=== PATIENT | female | born 1965 | race Caucasian/White ===

== ENCOUNTER 2016-10-12 22:03 | Emergency (ER) | payer BC ==
[~2016-10-12] VITALS: Ht 157.5 cm; Wt 77.6 kg
[2016-10-12 22:12] VITALS: TEMP 36.6; Ht 157.5 cm; Wt 77.6 kg
[2016-10-12] MEDS ORDERED: SODIUM CHLORIDE 0.9% 1000ML 1,000 ML IV STA (22:23)
[2016-10-12] MEDS ORDERED: DiphenhydrAMINE HCL 50 MG/ML VIAL IV STA (22:23)
[2016-10-12] MEDS ORDERED: PROMETHAZINE HCL INJ 25 MG/ML 1 ML VIAL IV STA (22:23)
[2016-10-12] MEDS ORDERED: DEXAMETHASONE SOD INJ 10 MG/ML VIAL IV ONE (22:30)
[2016-10-12] MEDS ORDERED: PROMETHAZINE HCL INJ 25 MG in SODIUM CHLORIDE 0.9% 50ML 50 ML IV STA (22:39)
[2016-10-12 23:08] VITALS: BP 107/78; PULSE 80; O2SAT 100
--- NOTE | 2016-10-12 23:26 | EMERGENCY ROOM VISIT NOTE ---
History First contact with patient: 22:16 Chief Complaint: HEADACHE Stated Complaint: SEVERE MIGRAINE,VOMITNG History of Present Illness The patient is a 51 year old female who presents to the Emergency Room with complaints of migraine headache. The patient states she has been getting migraine headaches for at least 13 years. The patient states that she catches it early she can take Tylenol migraine and it will relieve the headache. The patient states that this morning she tried the Tylenol migraine without any relief. She states that she had some hydrocodone at home which she took 2 tablets without any relief of the headache. She states the pain is on the right side of her forehead head and on both sides of her head which she describes as a "vice". The patient denies any visual changes. The patient states that she has some dizziness. She admits to nausea and vomiting all day long. She currently rates the headache at a 10 out of 10. The patient states that her symptoms are typical for her migraines. She states this is not the worse headache of her life. Review of Systems 10 system review was performed and was negative unless stated otherwise history of present illness. Past Medical/Surgical History Migraine, 4 C-sections Social History Smoking Status: Never Smoker Smokeless Tobacco Use: No Alcohol Use: none Drug Use: none Marital Status: Housing Status: lives with family Occupation Status: unemployed Current/Historical Medications No Active Prescriptions or Reported Meds Physical Exam Vital Signs Date Time Temp Pulse Resp B/P (MAP) Pulse Ox O2 Delivery O2 Flow Rate FiO2 10/12/16 23:08 80 18 107/78 100 Room Air 10/12/16 22:12 36.6 78 16 138/69 99 Room Air Physical Exam GENERAL: 51-year-old white female appears in no acute distress. MENTAL STATUS: Patient is alert and oriented x3 EYES: PERRLA. EOMs intact. EARS: Canals clear. TMs without fluid level noted. NECK: Supple, no lymphadenopathy noted. No carotid bruits noted. LUNGS: Clear auscultation without wheezes rales or rhonchi. CARDIAC: Regular rate and rhythm without murmur. Pulses is full and equal throughout. NEURO:Cranial nerves two through 12 intact. Cerebellar function intact with [id number]. Fine motor intact with alternating finger motions. Medical Decision & Procedures Medications Administered Medications (Trade) Dose Ordered Sig/Ayde Route Start Time Stop Time Status Last Admin Dose Admin Sodium Chloride 1,000 ml @ 999 mls/hr Q1H1M STAT IV 10/12/16 22:23 10/12/16 23:23 10/12/16 22:35 999 MLS/HR Dexamethasone Sodium Phosphate (Decadron Inj) 10 mg NOW ONCE IV 10/12/16 22:30 10/12/16 22:31 DC 10/12/16 22:36 10 MG Diphenhydramine HCl (Benadryl Inj) 25 mg NOW STAT IV 10/12/16 22:23 10/12/16 22:25 DC 10/12/16 22:35 25 MG Promethazine HCl 25 mg/Sodium Chloride 51 ml @ 204 mls/hr NOW STAT IV 10/12/16 22:39 10/12/16 22:53 DC 10/12/16 22:43 204 MLS/HR ED Course The patient was evaluated. The patient's EMR medication list were reviewed. IV access was obtained. The patient was given 1 L normal saline wide-open. The patient was given Phenergan 25 mg IV, Benadryl 25 mg IV and Decadron 10 mg IV. The patient cannot receive Toradol since she is allergic to ibuprofen. The patient was reevaluated and felt better. She felt that she was able to go home at this point. The patient was discharged home in stable condition with a Zofran home pack. Her will be driving her.. Medical Decision The patient presented with her typical migraine headache symptoms therefore no additional diagnostic imaging was performed. [place] Drug Monitoring Program Search Results: patient reviewed within database Medication Reconcilliation Current Medication List: was personally reviewed by [facility] Blood Pressure Screening Patient's blood pressure: Normal blood pressure Impression Primary Impression: Migraine Departure Information Dispostion Home / Self-Care Condition GOOD Prescriptions No Active Prescriptions or Reported Meds Referrals Julio Limon M.D. (PCP) Forms HOME CARE DOCUMENTATION FORM, IMPORTANT VISIT INFORMATION Patient Instructions ED Headache Migraine, [employer] Additional Instructions Go home and rest. Take Zofran as needed for nausea. If you have any recurrent severe headaches, return to the ER as needed. If your migraines started occurring more frequently recommend follow-up with your family doctor. Problem Qualifiers Primary Impression: Migraine Migraine type: with aura Status migrainosus presence: with status migrainosus Intractability: not intractable Qualified Codes: G43.101 - Migraine with aura, not intractable, with status migrainosus
[2016-10-12] MEDS ORDERED: ONDANSETRON HOME PACK 4MG OD TAB PO ONE (23:30)
== END 2016-10-12 23:44 | disposition home or self-care (01) ==
LOC: C.EDB 22:04 → C.EDA 23:44
DX: G43.101 Migraine with aura, not intractable, with status migrainosus (principal)